=== PATIENT | male | born 1975 | race African-American/Black ===

== ENCOUNTER 2020-06-28 14:45 | Emergency (ER) | payer BC ==
[~2020-06-28] VITALS: Ht 177.8 cm; Wt 95.3 kg
[2020-06-28] MEDS ORDERED: NOHOMEMEDICATIONS (14:58)
[2020-06-28] MEDS ORDERED: NORCO 5-325 TA1 EAC2 PO ×2 (16:16→16:23)
[2020-06-28] MEDS ORDERED: NAPROSYN500 MG PO (16:16)
[2020-06-28 18:15] VITALS: BP 132/76
== END 2020-06-28 18:34 | disposition home or self-care (01) ==
LOC: ER 14:45 → EDSEX 14:45 → ER 18:34
DX: S82.142A Displaced bicondylar fracture of left tibia, initial encounter for closed fracture (principal); W01.0XXA Fall on same level from slipping, tripping and stumbling without subsequent striking against object, initial encounter; Y93.89 Activity, other specified; Y92.89 Other specified places as the place of occurrence of the external cause; Y99.8 Other external cause status

== ENCOUNTER → 2020-07-17 | Outpatient (CLI) | payer BC ==
[~2020-07-17] MED LIST: NAPROSYN500 MG PO; NOHOMEMEDICATIONS; NORCO 5-325 TA1 EAC2 PO
== END ==
LOC: ULTRA 14:14
PROVIDERS: ATTEND Nurse Practitioner
DX: N50.3 Cyst of epididymis (principal); I86.1 Scrotal varices

== ENCOUNTER → 2020-07-25 | Outpatient (CLI) | payer BC | LOC: ULTRA 09:07 | PROVIDERS: ATTEND Nurse Practitioner | DX: E03.9 Hypothyroidism, unspecified (principal) ==

== ENCOUNTER 2020-10-10 16:28 | Emergency (ER) | payer BC ==
[~2020-10-10] VITALS: Ht 180.3 cm; Wt 95.3 kg
[2020-10-10 16:29] VITALS: BP 125/80
== END 2020-10-10 17:00 | disposition home or self-care (01) ==
LOC: ER 16:28
DX: M25.562 Pain in left knee (principal)